=== PATIENT | male | born 1955 | race Hispanic/Latino ===

== ENCOUNTER 2020-09-12 05:45 | Day surgery (SDC) | payer OTHER ==
[2020-09-07 11:07] VITALS: BP 149/63
[2020-09-07 14:35] LABS: BASOPHILS % (AUTO) 0.7 % (0.0-5.0); EOSINOPHILS % (AUTO) 5.3 % (0.0-8.0); HEMATOCRIT 37.5 % (42-54); LYMPHOCYTES % (AUTO) 18.7 % (21.0-51.0); MEAN CORPUSCULAR HEMOGLOBIN 29.6 pg (27.0-33.0); MEAN CORPUSCULAR HGB CONC 31.7 g/dL (32.0-36.0); MEAN CORPUSCULAR VOLUME 93.3 fL (79-99); MONOCYTES % (AUTO) 6.8 % (3.0-13.0); NEUTROPHILS % (AUTO) 68.5 % (40.0-77.0); PLATELET COUNT (AUTO) 130 K/uL (130-400); RED BLOOD CELL COUNT(AUTO) 4.02 MIL/uL (4.50-6.20); RED CELL DISTRIBUTION WIDTH 14.2 % (11.0-15.5); WHITE BLOOD COUNT (AUTO) 5.5 K/uL (4.8-10.8)
[2020-09-07 14:45] LABS: INR 1.02 (0.85-1.15); POTASSIUM 5.8 mmol/L (3.5-5.1); PROTHROMBIN TIME 11.1 SEC (9.6-11.6)
[2020-09-07 14:46] LABS: PARTIAL THROMBOPLASTIN TIME 29.5 SEC (26.3-35.5)
[~2020-09-12] VITALS: Ht 172.7 cm; Wt 78.2 kg
[2020-09-12] VITALS (11 sets, daily range): BP systolic 121–174; BP diastolic 52–78
[~2020-09-12 05:45] MED LIST: 0.9% NACL 500ML IV.SOLN 500 ML IV SCH; AEC81 PO; ATOR40TA71 PO; BUSP5TAB3 PO; CARV25TA PO; GLIP5TAB11 PO; LISI40TA9 PO
[2020-09-12] MEDS ORDERED: 0.9%NACL 1000ML 1,000 ML IV ONE (06:15)
[2020-09-12 06:39] LABS: POTASSIUM 5.8 mmol/L (3.5-5.1)
[2020-09-12 06:44] LABS: CREATININE 8.1 mg/dL (0.5-1.5)
[2020-09-12] MEDS ORDERED: LIDOCAINE/PRILOCAINE CREAM 30 GM TUBE TP SCH (07:00)
[2020-09-12] MEDS ORDERED: NITR0.4T50 SL (07:40)
[2020-09-12] MEDS ORDERED: NICARDIPINE 25MG INJ IV ONE (09:23)
[2020-09-12] MEDS ORDERED: IOHEXOL 350 MG/ML 100ML INFUS..BTL IV ONE (09:23)
[2020-09-12] MEDS ORDERED: FENTANYL CITRATE PF 50 MCG/1 ML 2ML VIAL ONE (09:23)
[2020-09-12] MEDS ORDERED: MIDAZOLAM HCL 1 MG/ML 2ML VIAL ONE (09:23)
[2020-09-12] MEDS ORDERED: NITROGLYCERIN 2 MG VIAL IV ONE (09:23)
[2020-09-12] MEDS ORDERED: HEPARIN 10,000 UNIT/10ML (1,000 UNIT/ML) VIAL ONE (09:23)
[2020-09-12] MEDS ORDERED: LIDOCAINE HCL 400MG/20ML VIAL ONE (09:24)
[2020-09-12] MEDS ORDERED: HYDRALAZINE 20MG/ML VIAL ONE (09:48)
[2020-09-12] MEDS ORDERED: CLOPIDOGREL 300MG TAB ONE (10:04)
[2020-09-12] MEDS ORDERED: ASPIRIN 325MG EC TAB PO ONE (10:04)
[2020-09-12] MEDS ORDERED: NOREPINEPHRINE BITARTRATE 1 MG/1 ML ML IV ONE (10:10)
[2020-09-12] MEDS ORDERED: IOHEXOL-350 50ML VIAL IV ONE (11:29)
== END 2020-09-12 17:35 | disposition home or self-care (01) ==
LOC: DAH 05:45
PROVIDERS: ATTEND Internal Medicine Cardiovascular Disease
DX: I25.10 Atherosclerotic heart disease of native coronary artery without angina pectoris (principal); E11.22 Type 2 diabetes mellitus with diabetic chronic kidney disease; I12.0 Hypertensive chronic kidney disease with stage 5 chronic kidney disease or end stage renal disease; N18.6 End stage renal disease; E11.319 Type 2 diabetes mellitus with unspecified diabetic retinopathy without macular edema; E11.51 Type 2 diabetes mellitus with diabetic peripheral angiopathy without gangrene; F17.210 Nicotine dependence, cigarettes, uncomplicated; E78.5 Hyperlipidemia, unspecified; Z90.49 Acquired absence of other specified parts of digestive tract; Z98.49 Cataract extraction status, unspecified eye; Z82.49 Family history of ischemic heart disease and other diseases of the circulatory system; Z83.3 Family history of diabetes mellitus; Z80.9 Family history of malignant neoplasm, unspecified; Z79.01 Long term (current) use of anticoagulants; Z99.2 Dependence on renal dialysis; Z79.82 Long term (current) use of aspirin
CPT/HCPCS: 36415 ×2; 71045; 80048 ×2; 82948 ×2; 85025; 85347 ×5; 85610; 85730; 93005; 93454; A4215; A4216; A4221; A4222; A4223 ×3; A4606; A4663; C1725 ×4; C1760; C1769 ×3; C1887 ×2; C1894 ×2; C9600; J0360; J1644 ×3; J2250; J3010; J3490 ×3; J7030; Q9965 ×2; Q9967 ×2; 99156; 99157

== ENCOUNTER 2020-10-31 06:09 | Day surgery (SDC) | payer OTHER ==
[2020-10-30 09:20] LABS: BASOPHILS % (AUTO) 0.6 % (0.0-5.0); EOSINOPHILS % (AUTO) 5.6 % (0.0-8.0); LYMPHOCYTES % (AUTO) 15.6 % (21.0-51.0); MEAN CORPUSCULAR HEMOGLOBIN 28.5 pg (27.0-33.0); MEAN CORPUSCULAR HGB CONC 31.4 g/dL (32.0-36.0); MEAN CORPUSCULAR VOLUME 90.7 fL (79-99); MONOCYTES % (AUTO) 7.1 % (3.0-13.0); NEUTROPHILS % (AUTO) 70.8 % (40.0-77.0); PLATELET COUNT (AUTO) 172 K/uL (130-400); RED BLOOD CELL COUNT(AUTO) 3.86 MIL/uL (4.50-6.20); RED CELL DISTRIBUTION WIDTH 14.3 % (11.0-15.5); WHITE BLOOD COUNT (AUTO) 6.5 K/uL (4.8-10.8)
[2020-10-30 09:32] LABS: INR 1.03 (0.85-1.15); PROTHROMBIN TIME 11.2 SEC (9.6-11.6)
[2020-10-30 09:33] LABS: PARTIAL THROMBOPLASTIN TIME 31.2 SEC (26.3-35.5)
[2020-10-30 09:35] VITALS: BP 241/108
[2020-10-30 09:36] LABS: CREATININE 11.8 mg/dL (0.5-1.5); POTASSIUM 6.2 mmol/L (3.5-5.1)
[2020-10-31] VITALS (11 sets, daily range): BP systolic 157–191; BP diastolic 68–82
[~2020-10-31] VITALS: Ht 172.7 cm; Wt 76.0 kg
[~2020-10-31 06:09] MED LIST changes: +BRIM5DRO OS; +CALC667C10 PO; +CLOP75TA32 PO; +INSU100V12 SQ; +NITR0.4T50 SL
[2020-10-31] MEDS ORDERED: 0.9%NACL 1000ML 1,000 ML IV ONE (06:32)
[2020-10-31 07:02] LABS: CREATININE 7.5 mg/dL (0.5-1.5); POTASSIUM 5.4 mmol/L (3.5-5.1)
[2020-10-31] MEDS ORDERED: NITROGLYCERIN 2 MG VIAL IV ONE (07:19)
[2020-10-31] MEDS ORDERED: NICARDIPINE 25MG INJ IV ONE (07:19)
[2020-10-31] MEDS ORDERED: HEPARIN 10,000 UNIT/10ML (1,000 UNIT/ML) VIAL ONE (07:19)
[2020-10-31] MEDS ORDERED: IOHEXOL 350 MG/ML 100ML INFUS..BTL IV ONE (07:19)
[2020-10-31] MEDS ORDERED: MIDAZOLAM HCL 1 MG/ML 2ML VIAL ONE (07:20)
[2020-10-31] MEDS ORDERED: LIDOCAINE HCL 400MG/20ML VIAL ONE (07:20)
[2020-10-31] MEDS ORDERED: FENTANYL CITRATE PF 50 MCG/1 ML 2ML VIAL ONE (07:20)
[2020-10-31] MEDS ORDERED: CLOPIDOGREL 300MG TAB ONE (07:58)
== END 2020-10-31 14:15 | disposition home or self-care (01) ==
LOC: DAH 06:09
PROVIDERS: ATTEND Internal Medicine Cardiovascular Disease
DX: I25.10 Atherosclerotic heart disease of native coronary artery without angina pectoris (principal); I12.0 Hypertensive chronic kidney disease with stage 5 chronic kidney disease or end stage renal disease; E11.22 Type 2 diabetes mellitus with diabetic chronic kidney disease; N18.6 End stage renal disease; E11.51 Type 2 diabetes mellitus with diabetic peripheral angiopathy without gangrene; E78.5 Hyperlipidemia, unspecified; F17.210 Nicotine dependence, cigarettes, uncomplicated; Z79.01 Long term (current) use of anticoagulants; Z79.899 Other long term (current) drug therapy; Z98.890 Other specified postprocedural states; Z79.82 Long term (current) use of aspirin; Z95.5 Presence of coronary angioplasty implant and graft; Z90.49 Acquired absence of other specified parts of digestive tract; Z98.49 Cataract extraction status, unspecified eye; Z82.49 Family history of ischemic heart disease and other diseases of the circulatory system; Z83.3 Family history of diabetes mellitus; Z80.9 Family history of malignant neoplasm, unspecified; Z99.2 Dependence on renal dialysis; Z85.46 Personal history of malignant neoplasm of prostate
CPT/HCPCS: 36415; 71045; 80048; 82948; 85025; 85347; 85610; 85730; 93005; 99156; 99157; A4606; C1894; C9602; J1644; J2250; J3010; J3490; J7030; Q9967

== ENCOUNTER 2023-08-04 14:49 | Inpatient (IN) | payer OTHER ==
[~2023-08-04] VITALS: Ht 172.7 cm; Wt 75.6 kg
[~2023-08-04 14:49] MED LIST changes: -0.9% NACL 500ML IV.SOLN 500 ML IV SCH; -CALC667C10 PO; -CLOP75TA32 PO; -GLIP5TAB11 PO; +GLIP5TAB15 PO; +HYDR25 PO; +Isosorbide Mono 30MG Sr Tab PO; +SEVE800T7 PO
[2023-08-04 15:29] LABS: BASOPHILS # (AUTO) 0.02 K/uL (0.00-0.20); BASOPHILS % (AUTO) 0.2 % (0.0-5.0); EOSINOPHILS # (AUTO) 0.05 K/uL (0.00-0.70); EOSINOPHILS % (AUTO) 0.4 % (0.0-8.0); HEMATOCRIT 32.5 % (42-54); IMMATURE GRANULOCYTE ABSOLUTE 0.04 K/uL (0-1); LYMPHOCYTES # (AUTO) 0.4 K/uL (1.0-4.8); LYMPHOCYTES % (AUTO) 3.5 % (21.0-51.0); MEAN CORPUSCULAR HEMOGLOBIN 30.9 pg (27.0-33.0); MEAN CORPUSCULAR HGB CONC 32.9 g/dL (32.0-36.0); MEAN CORPUSCULAR VOLUME 93.9 fL (79-99); MONOCYTES # (AUTO) 0.6 K/uL (0.1-1.0); NEUTROPHILS # (AUTO) 10.7 K/uL (1.8-7.7); NEUTROPHILS % (AUTO) 90.6 % (40.0-77.0); PLATELET COUNT (AUTO) 163 K/uL (130-400); RED BLOOD CELL COUNT(AUTO) 3.46 MIL/uL (4.50-6.20); RED CELL DISTRIBUTION WIDTH 13.5 % (11.0-15.5); WHITE BLOOD COUNT (AUTO) 11.9 K/uL (4.8-10.8)
[2023-08-04] MEDS: ONDANSETRON 4MG INJ IVP ONE (15:39)
[2023-08-04 16:28] LABS: POTASSIUM 5.7 mmol/L (3.5-5.1)
[2023-08-04 16:32] LABS: CREATININE 11.6 mg/dL (0.5-1.3)
[2023-08-04] MEDS: NIFEDIPINE 10 MG CAP PO ONE (16:50)
[2023-08-04] MEDS ORDERED: MAGNESIUM 2GM PREMIX 50ML 50 ML IV PRN (18:30)
[2023-08-04] MEDS ORDERED: NITROGLYCERIN 0.4 MG SL TAB SL PRN (18:30)
[2023-08-04] MEDS ORDERED: LACTULOSE 20 GM/30 ML UDCUP PO PRN (18:30)
[2023-08-04] MEDS ORDERED: DiphenhydrAMINE HCL 50 MG/ML VIAL IV PRN (18:30)
[2023-08-04] MEDS ORDERED: ACETAMINOPHEN 325 MG TAB PO PRN (18:30)
[2023-08-04] MEDS: HEPARIN 5,000 UNIT VIAL SQ SCH (20:22)
[2023-08-04] MEDS: FAMOTIDINE 20MG VIAL IV SCH (20:22)
[2023-08-04] MEDS: INSULIN HUMULIN R 100 UNIT/ML 3ML SQ SCH (20:31)
[2023-08-04] MEDS: HYDRALAZINE 20MG/ML VIAL IV PRN (20:32)
[2023-08-04] MEDS: ONDANSETRON 4MG INJ IV PRN (21:53)
[2023-08-04] MEDS: ACETAMINOPHEN 325 MG TAB PO PRN (21:53)
[2023-08-05] VITALS (18 sets, daily range): BP systolic 103–181; BP diastolic 43–112; PULSE 68–79; RESP 18–22; TEMP 98–98.1; O2SAT 97
[2023-08-05] MEDS: TRAMADOL HCL 50 MG TABLET PO PRN (04:11)
[2023-08-05 04:43] LABS: BASOPHILS # (AUTO) 0.02 K/uL (0.00-0.20); BASOPHILS % (AUTO) 0.2 % (0.0-5.0); HEMATOCRIT 33.7 % (42-54); IMMATURE GRANULOCYTE ABSOLUTE 0.04 K/uL (0-1); LYMPHOCYTES # (AUTO) 0.7 K/uL (1.0-4.8); LYMPHOCYTES % (AUTO) 5.6 % (21.0-51.0); MEAN CORPUSCULAR HEMOGLOBIN 31.4 pg (27.0-33.0); MEAN CORPUSCULAR HGB CONC 32.9 g/dL (32.0-36.0); MEAN CORPUSCULAR VOLUME 95.5 fL (79-99); MONOCYTES # (AUTO) 0.6 K/uL (0.1-1.0); MONOCYTES % (AUTO) 4.9 % (3.0-13.0); NEUTROPHILS # (AUTO) 11.1 K/uL (1.8-7.7); PLATELET COUNT (AUTO) 149 K/uL (130-400); RED BLOOD CELL COUNT(AUTO) 3.53 MIL/uL (4.50-6.20); RED CELL DISTRIBUTION WIDTH 13.7 % (11.0-15.5); WHITE BLOOD COUNT (AUTO) 12.5 K/uL (4.8-10.8)
[2023-08-05 04:57] LABS: HEMOGLOBIN A1C 7.3 % (4.0-6.0)
[2023-08-05 05:02] LABS: ALBUMIN 3.7 g/dL (3.5-5.0); BILIRUBIN,DIRECT 0.2 mg/dL (0.0-0.3); BILIRUBIN,TOTAL 0.5 mg/dL (0.2-1.0); MAGNESIUM 2.1 mg/dL (1.80-2.40); POTASSIUM 4.9 mmol/L (3.5-5.1); TOTAL PROTEIN, SERUM 6.9 g/dL (6.0-8.3)
[2023-08-05 05:04] LABS: CREATININE 12.9 mg/dL (0.5-1.3)
[2023-08-05] MEDS: GUAIFENESIN-DM 200/20 MG 10 ML PO PRN (05:04)
[2023-08-05] MEDS: MAG/ALUM/SIMETH 30 ML UDCUP PO PRN (05:04)
[2023-08-05] MEDS: HYDRALAZINE 25MG TABLET PO SCH (13:50)
[2023-08-05] MEDS: CARVEDILOL 25 MG TABLET PO SCH (14:32)
[2023-08-05] MEDS: ISOSORBIDE MONO 30MG SR TAB PO SCH (14:35)
[2023-08-05] MEDS: LISINOPRIL 40 MG TABLET PO SCH (14:37)
[2023-08-05] MEDS ORDERED: CARVEDILOL 25 MG TABLET PO SCH (21:00)
[2023-08-05] MEDS ORDERED: BUSP5TAB3 PO (23:29)
[2023-08-05] MEDS ORDERED: ONDA-104 PO (23:29)
[2023-08-05] MEDS ORDERED: NIFE-78 PO (23:29)
[2023-08-05] MEDS ORDERED: OMEP40CA21 PO (23:29)
[2023-08-05] MEDS ORDERED: LOPE2 PO (23:30)
[2023-08-06] VITALS (23 sets, daily range): BP systolic 123–194; BP diastolic 55–78; PULSE 68–80; RESP 14–20; TEMP 98.1–98.2; O2SAT 97–99
[2023-08-06] MEDS: ZOLPIDEM TARTRATE 5 MG TAB PO PRN (03:15)
[2023-08-06 04:33] LABS: HEMATOCRIT 31.3 % (42-54); MEAN CORPUSCULAR HEMOGLOBIN 30.6 pg (27.0-33.0); MEAN CORPUSCULAR HGB CONC 32.3 g/dL (32.0-36.0); MEAN CORPUSCULAR VOLUME 94.8 fL (79-99); RED BLOOD CELL COUNT(AUTO) 3.3 MIL/uL (4.50-6.20); RED CELL DISTRIBUTION WIDTH 13.8 % (11.0-15.5)
[2023-08-06 05:02] LABS: ALBUMIN 3.3 g/dL (3.5-5.0); BILIRUBIN,TOTAL 0.5 mg/dL (0.2-1.0); PHOSPHORUS 5.7 mg/dL (2.5-4.9); TOTAL PROTEIN, SERUM 6.9 g/dL (6.0-8.3)
[2023-08-06] MEDS: Vitamin B Complex/Vit C/Folic Acid PO SCH (08:54)
[2023-08-06] MEDS ORDERED: LISINOPRIL 40 MG TABLET PO SCH (09:00)
[2023-08-06] MEDS ORDERED: ISOSORBIDE MONO 30MG SR TAB PO SCH (09:00)
[2023-08-06 12:38] LABS: AMYLASE 42 U/L (25-115)
[2023-08-06] MEDS: PANTOPRAZOLE 40 MG/VIAL IVP SCH (15:48)
[2023-08-06 20:57] LABS: HEPATITIS B SURFACE ANTIBODY Positive (Reactive); HEPATITIS B SURFACE ANTIGEN Non-Reactive (Nonreactive)
[2023-08-06 20:58] LABS: HEPATITIS B CORE AB TOTAL Non-Reactive (Nonreactive)
[2023-08-07] VITALS (23 sets, daily range): BP systolic 125–195; BP diastolic 52–76; PULSE 61–77; RESP 15–20; O2SAT 96–97
[2023-08-07 03:41] LABS: BASOPHILS # (AUTO) 0.02 K/uL (0.00-0.20); BASOPHILS % (AUTO) 0.3 % (0.0-5.0); EOSINOPHILS # (AUTO) 0.01 K/uL (0.00-0.70); EOSINOPHILS % (AUTO) 0.2 % (0.0-8.0); HEMATOCRIT 31.9 % (42-54); IMMATURE GRANULOCYTE ABSOLUTE 0.02 K/uL (0-1); LYMPHOCYTES # (AUTO) 0.5 K/uL (1.0-4.8); MEAN CORPUSCULAR HEMOGLOBIN 31.3 pg (27.0-33.0); MEAN CORPUSCULAR HGB CONC 32.9 g/dL (32.0-36.0); MEAN CORPUSCULAR VOLUME 95.2 fL (79-99); MONOCYTES # (AUTO) 0.9 K/uL (0.1-1.0); MONOCYTES % (AUTO) 13.1 % (3.0-13.0); NEUTROPHILS # (AUTO) 5.1 K/uL (1.8-7.7); NEUTROPHILS % (AUTO) 78.1 % (40.0-77.0); PLATELET COUNT (AUTO) 117 K/uL (130-400); RED BLOOD CELL COUNT(AUTO) 3.35 MIL/uL (4.50-6.20); RED CELL DISTRIBUTION WIDTH 13.4 % (11.0-15.5); WHITE BLOOD COUNT (AUTO) 6.5 K/uL (4.8-10.8)
[2023-08-07 03:57] LABS: ALBUMIN 3.1 g/dL (3.5-5.0); BILIRUBIN,TOTAL 0.6 mg/dL (0.2-1.0); CREATININE 7.3 mg/dL (0.5-1.3); PHOSPHORUS 4.2 mg/dL (2.5-4.9); POTASSIUM 3.8 mmol/L (3.5-5.1); TOTAL PROTEIN, SERUM 6.7 g/dL (6.0-8.3)
[2023-08-07 04:06] LABS: INR <= 0.93 (0.85-1.15); PROTHROMBIN TIME 10.8 SEC (9.6-11.6)
[2023-08-07 04:07] LABS: PARTIAL THROMBOPLASTIN TIME 30.2 SEC (26.3-35.5)
[2023-08-07] MEDS ORDERED: PROPOFOL 10 MG/ML 20ML VIAL IV ONE (09:51)
[2023-08-07] MEDS ORDERED: INSULIN DETEMIR (12:25)
[2023-08-07] MEDS ORDERED: SEVE0.8P3 PO (12:25)
[2023-08-08] VITALS (18 sets, daily range): BP systolic 113–181; BP diastolic 53–71; PULSE 64–67; RESP 15–19; TEMP 97.9–98.2; O2SAT 100
[2023-08-08 03:51] LABS: HEMATOCRIT 30.5 % (42-54); MEAN CORPUSCULAR HGB CONC 33.4 g/dL (32.0-36.0); MEAN CORPUSCULAR VOLUME 92.7 fL (79-99); RED BLOOD CELL COUNT(AUTO) 3.29 MIL/uL (4.50-6.20); RED CELL DISTRIBUTION WIDTH 13.2 % (11.0-15.5); WHITE BLOOD COUNT (AUTO) 5.6 K/uL (4.8-10.8)
[2023-08-08 04:18] LABS: PHOSPHORUS 4.6 mg/dL (2.5-4.9); POTASSIUM 3.8 mmol/L (3.5-5.1)
[2023-08-08 04:25] LABS: CREATININE 9.4 mg/dL (0.5-1.3)
[2023-08-08] MEDS: EPOETIN ALFA-EPBX (NON-ESRD) 10,000 UNIT/ML VIAL SQ SCH (12:58)
== END 2023-08-08 16:20 | disposition home or self-care (01) | DRG 304 ==
LOC: EDH 14:49 → EDHIP 18:18 → 4BH 08-05 21:36
PROVIDERS: ADMIT Hospitalist; ATTEND Hospitalist
PROC: 5A1D70Z Performance of Urinary Filtration, Intermittent, Less than 6 Hours Per Day (ICD-10-PCS; 2023-08-05)
PROC: 5A1D70Z Performance of Urinary Filtration, Intermittent, Less than 6 Hours Per Day (ICD-10-PCS; 2023-08-06)
PROC: 0DJ08ZZ Inspection of Upper Intestinal Tract, Via Natural or Artificial Opening Endoscopic (ICD-10-PCS; principal; 2023-08-07)
PROC: 5A1D70Z Performance of Urinary Filtration, Intermittent, Less than 6 Hours Per Day (ICD-10-PCS; 2023-08-08)
DX: I16.1 Hypertensive emergency (principal); N18.6 End stage renal disease; I50.32 Chronic diastolic (congestive) heart failure; I25.10 Atherosclerotic heart disease of native coronary artery without angina pectoris; I13.2 Hypertensive heart and chronic kidney disease with heart failure and with stage 5 chronic kidney disease, or end stage renal disease; A08.4 Viral intestinal infection, unspecified; E11.22 Type 2 diabetes mellitus with diabetic chronic kidney disease; D64.9 Anemia, unspecified; E11.319 Type 2 diabetes mellitus with unspecified diabetic retinopathy without macular edema; E11.649 Type 2 diabetes mellitus with hypoglycemia without coma; E11.65 Type 2 diabetes mellitus with hyperglycemia; D69.6 Thrombocytopenia, unspecified; H54.7 Unspecified visual loss; E11.51 Type 2 diabetes mellitus with diabetic peripheral angiopathy without gangrene; E78.00 Pure hypercholesterolemia, unspecified; I65.22 Occlusion and stenosis of left carotid artery; K31.89 Other diseases of stomach and duodenum; Z82.49 Family history of ischemic heart disease and other diseases of the circulatory system; Z83.3 Family history of diabetes mellitus; Z87.891 Personal history of nicotine dependence; Z90.49 Acquired absence of other specified parts of digestive tract; Z99.2 Dependence on renal dialysis; Z86.16 Personal history of COVID-19; Z95.5 Presence of coronary angioplasty implant and graft; Z98.62 Peripheral vascular angioplasty status
CPT/HCPCS: 36415; 43235; 71045; 78264; 80048; 80053; 80076; 82140; 82150; 82550; 82948; 83036; 83605; 83690; 83735; 83880; 84100; 84145; 84484; 85025; 85027; 85610; 85730; 86704; 86706; 87340; 90935; 93005; 93306; 93880; 96372; 96374; 99291; A4606; A9541; C9113; G0378; J0360; J1644; J1815; J2405; J2704; J3490; J7030; A4215; A4221; A4222; A4223; A4620; A4663; A7002; Q5106